=== PATIENT | female | born 1995 | race African-American/Black ===

== ENCOUNTER 2023-01-31 13:43 | Emergency (ER) | payer OTHER ==
[2023-01-31 14:37] LABS: #Basophils 0.1 10x3/uL (0.0-0.2); #Eosinphils 0.5 10x3/uL (0.0-0.5); #Neutrophils 5.5 10x3/uL (1.5-8.4); %Basophils 0.4 % (0.0-2.0); %Lymphocytes 40.6 % (18.0-47.0); %Monocytes 8.4 % (0.0-10.0); %Neutrophils 46.3 % (40.0-75.0); Hemoglobin 9.6 g/dL (12.0-15.5); Mean Corpuscular HGB CONC 29.6 g/dL (32.0-36.0); Mean Corpuscular Hemoglobin 20.8 pg (27.0-33.0); Mean Corpuscular Volume 70.1 fl (81.6-98.3); Mean Platelet Volume 10.1 fl (7.4-10.4); Platelet Count 364 10x3/uL (150-450); RBC Distribution Width 19.9 % (11.5-14.5); Red Blood Cell (RBC) Count 4.62 10x6/uL (3.90-5.03)
[2023-01-31 14:56] LABS: ALT (SGPT) 91 U/L (8-55); AST (SGOT) 57 U/L (5-34); Alkaline Phosphatase 62 U/L (40-110); Anion Gap 13 mmol/L (10-20); BUN (Urea Nitrogen) 10 mg/dL (7.0-18.7); Bilirubin, Total 0.2 mg/dL (0.2-1.2); Calc. Creatinine Clearance 0 mL/min (70-130); Calcium 9.1 mg/dL (7.8-10.44); Carbon Dioxide 19 mmol/L (22-29); Chloride 108 mmol/L (98-107); Estimated GFR 87; Globulin 3.5 g/dL (2.4-3.5); Glucose 100 mg/dL (70-105); Potassium 3.5 mmol/L (3.5-5.1); Protein, Total 7.5 g/dL (6.0-8.3); Sodium 136 mmol/L (136-145)
[2023-01-31 15:02] LABS: BHCG - Serum POSITIVE (NEGATIVE)
[2023-01-31 15:04] LABS: Pregs Control Background? CLEAR/WHITE (CLR/WHITE); Pregs Control Bar Appear? YES (CONTROL BAR)
[2023-01-31 15:09] LABS: Bilirubin Neg (Negative); Blood, Urine 25 (Negative); Clarity Clear (Clear); Glucose, Urine (Dipstick) Normal (Negative); Ketone, Urine Negative (Negative); Leukocyte Negative (Negative); Nitrite Negative (Negative); Protein, Urine (Dipstick) Negative (Neg-Trace); Specific Gravity, Urine 1.025 (1.005-1.030); Urobilinogen Normal mg/dL (Less than 2)
[2023-01-31 15:11] LABS: Pregnancy Test - Urine (BHCG) POSITIVE (Negative); Specific Gravity 1.025 (1.002-1.036)
[2023-01-31 15:12] LABS: Elliptocytes SLIGHT = 2-5 cells (100X) (0-1/hpf); Hypochromia SLIGHT = 6-15 cells (100X) (0-5/hpf)
[2023-01-31 15:12] LABS: Pregu Control Background? CLEAR/WHITE (CLR/WHITE); Pregu Control Bar Appear? YES (CONTROL BAR)
[2023-01-31] MEDS ORDERED: Ondansetron ODT 4 MG TAB ONE (15:19)
[2023-01-31] MEDS ORDERED: Acetaminophen 500 MG TAB ONE (15:19)
[2023-01-31 15:42] LABS: CAUTI Indications for Culture Pelvic or flank pain; WBC/HPF 0-3 HPF (0-3)
[2023-01-31 15:43] LABS: Bacteria/HPF Rare-Few HPF (None Seen)
[2023-01-31 15:44] LABS: Urine Culture Reflex No No
== END 2023-01-31 15:30 | disposition home or self-care (01) ==
LOC: CSHERS 13:43
DX: O21.9 Vomiting of pregnancy, unspecified (principal); Z3A.01 Less than 8 weeks gestation of pregnancy
CPT/HCPCS: 36415; 80053; 81001; 81025; 84703; 85025; 99284; Q0162

== ENCOUNTER 2023-05-19 09:55 | Outpatient (CLI) | payer OTHER | END 2023-05-19 09:56 | disposition home or self-care (01) | LOC: CSHULT 09:55 | PROVIDERS: ATTEND Family Medicine | DX: O09.892 Supervision of other high risk pregnancies, second trimester (principal); Z3A.19 19 weeks gestation of pregnancy | CPT/HCPCS: 76805 ==

== ENCOUNTER 2023-08-18 10:48 | Day surgery (SDC) | payer OTHER | END 2023-08-18 13:55 | disposition home or self-care (01) | LOC: CSHLD/OP 10:48 | PROVIDERS: ATTEND Family Medicine | DX: Z36.89 Encounter for other specified antenatal screening (principal); O24.419 Gestational diabetes mellitus in pregnancy, unspecified control; O41.8X30 Other specified disorders of amniotic fluid and membranes, third trimester, not applicable or unspecified; O36.8930 Maternal care for other specified fetal problems, third trimester, not applicable or unspecified; O00.01 Abdominal pregnancy with intrauterine pregnancy; Z3A.32 32 weeks gestation of pregnancy | CPT/HCPCS: 76815; 76819 ==

== ENCOUNTER 2023-08-18 19:20 | Inpatient (IN) | payer BC, OTHER ==
[2023-08-18 20:05] VITALS: BMI 44.4
[2023-08-18] MEDS ORDERED: Promethazine HCl 25 MG/ML VIAL IM PRN (20:48)
[2023-08-18] MEDS ORDERED: Ondansetron PF 4 MG/2 ML Vial IVP PRN (20:48)
[2023-08-18] MEDS: Lactated Ringer's 1,000 ML IV SCH ×2 (20:50→21:52)
[2023-08-18] MEDS ORDERED: Oxytocin 30 units/NS 500 ML 500 ML IV SCH (21:00)
[2023-08-18 21:09] LABS: Hematocrit 32.8 % (34.9-44.5); Hemoglobin 10.7 g/dL (12.0-15.5); Mean Corpuscular HGB CONC 32.6 g/dL (32.0-36.0); Mean Corpuscular Hemoglobin 25.2 pg (27.0-33.0); Mean Corpuscular Volume 77.4 fl (81.6-98.3); Mean Platelet Volume 11.1 fl (7.4-10.4); Platelet Count 292 10x3/uL (150-450); Red Blood Cell (RBC) Count 4.24 10x6/uL (3.90-5.03); White Blood Cell (WBC) Count 12.4 10x3/uL (3.5-10.5)
[2023-08-18] MEDS: hydrALAZINE 20 MG/ML VIAL SLOW IVP PRN ×2 (21:13→21:45)
[2023-08-18 21:25] LABS: ALT (SGPT) 24 U/L (8-55); AST (SGOT) 28 U/L (5-34); Albumin 3.3 g/dL (3.5-5.0); Alkaline Phosphatase 84 U/L (40-110); Anion Gap 14 mmol/L (10-20); BUN (Urea Nitrogen) 10 mg/dL (7.0-18.7); Bilirubin, Total 0.2 mg/dL (0.2-1.2); Calc. Creatinine Clearance 215 mL/min (70-130); Calcium 8.8 mg/dL (7.8-10.44); Carbon Dioxide 19 mmol/L (22-29); Chloride 108 mmol/L (98-107); Estimated GFR 107; Globulin 3.3 g/dL (2.4-3.5); Glucose 125 mg/dL (70-105); Potassium 4.2 mmol/L (3.5-5.1); Protein, Total 6.6 g/dL (6.0-8.3); Sodium 137 mmol/L (136-145)
[2023-08-18] MEDS: Betamet Acet/Betamet Na Ph 30 MG/5 ML VIAL IM SCH (21:29)
[2023-08-18] MEDS ORDERED: Lorazepam 2 MG/ML VIAL SLOW IVP PRN (21:39)
[2023-08-18] MEDS ORDERED: hydrALAZINE 20 MG/ML VIAL SLOW IVP PRN ×2 (21:39)
[2023-08-18] MEDS ORDERED: Labetalol HCl 100 MG/20 ML VIAL SLOW IVP PRN ×2 (21:39)
[2023-08-18] MEDS ORDERED: Calcium Gluc 4.6 MEQ/10 ML (100 MG/ML) SLOW IVP PRN (21:39)
[2023-08-18] MEDS ORDERED: Magnesium Sulfate 20 gm/500 ml 20 GM/500 ML BAG ONE (21:40)
[2023-08-18] MEDS: Labetalol HCl 100 MG TAB PO SCH (21:46)
[2023-08-18] MEDS: Magnesium Sulfate 20 gm/500 ml 20 GM/500 ML BAG IVPB SCH (21:47)
[2023-08-18 22:24] LABS: HBSAg Index 0.17 S/CO (0-0.99); Hep B Surf Ag - L&D Non-Reactive S/CO (NonReactive)
[2023-08-18 22:38] LABS: Amphetamine Not Detected (NotDetected); Barbiturates Screen Not Detected (NotDetected); Benzodiazepine Screen Not Detected (NotDetected); Cocaine Metabolite Screen Not Detected (NotDetected); Methadone Not Detected (NotDetected); Methamphetamine Not Detected (NotDetected); Opiate Screen Not Detected (NotDetected); Oxycodone Screen Not Detected (NotDetected); Phencyclidine (PCP) Not Detected (NotDetected); THC/Cannabinoid Screen Not Detected (NotDetected); Tricyclic Screen Not Detected (NotDetected)
[2023-08-18 22:58] LABS: Syphilis Antibody Nonreactive (Nonreactive); Syphilis Antibody Index 0.04 S/CO (<1.00 Non-Reactive)
[2023-08-19] MEDS: Lactated Ringer's 1,000 ML IV SCH ×4 (01:08→21:39)
[2023-08-19] MEDS: Acetaminophen 500 MG TAB PO PRN ×4 (04:57→22:25)
[2023-08-19] MEDS: Labetalol HCl 100 MG TAB PO SCH ×3 (06:05→21:39)
[2023-08-19 14:12] LABS: Hemoglobin A1c 6.6 % (4.0-6.0)
[2023-08-19] MEDS: Magnesium Sulfate 20 gm/500 ml 20 GM/500 ML BAG IVPB SCH (16:26)
[2023-08-19] MEDS: Betamet Acet/Betamet Na Ph 30 MG/5 ML VIAL IM SCH (21:38)
[2023-08-20] MEDS: Magnesium Sulfate 20 gm/500 ml 20 GM/500 ML BAG IVPB SCH ×2 (00:07→11:16)
[2023-08-20] MEDS ORDERED: Ondansetron PF 4 MG/2 ML Vial ONE (10:41)
[2023-08-20] MEDS ORDERED: PHENYLEPHRINE-NS 100 MCG/ML 10 ML SYRINGE ONE (10:41)
[2023-08-20] MEDS ORDERED: Dexamethasone 4 mg/ml Vial ONE (10:41)
[2023-08-20] MEDS ORDERED: Glycopyrrolate 0.2 MG/ML 5 ML SYRINGE ONE (10:41)
[2023-08-20] MEDS ORDERED: Phenylephrine 40 MG/NS 250 ML 250 ML ONE (10:41)
[2023-08-20] MEDS ORDERED: Ketorolac Tromethamine 30 MG (1 mL) VIAL ONE (10:41)
[2023-08-20] MEDS ORDERED: ePHEDrine Sulfate 50 MG/10 ML VIAL ONE (10:41)
[2023-08-20] MEDS ORDERED: Oxytocin 10 UNITS/ML VIAL ONE (10:41)
[2023-08-20] MEDS ORDERED: Morphine PF 10 MG/10 ML VIAL ONE (10:42)
[2023-08-20] MEDS: Acetaminophen 500 MG TAB PO PRN (11:15)
[2023-08-20] MEDS ORDERED: Erythromycin Base 0.5% Oint 1 GM TUBE ONE (12:53)
[2023-08-20] MEDS ORDERED: Phytonadione Neonatal 1 MG/0.5 ML AMP ONE (12:53)
[2023-08-20] MEDS ORDERED: CEFAZOLIN 2 GM VIAL ONE (12:54)
[2023-08-20] MEDS ORDERED: Moisturizing Cream (Eucerin) 113 GM JAR TOP PRN (14:52)
[2023-08-20] MEDS ORDERED: Ketorolac Tromethamine 30 MG (1 mL) VIAL IVP PRN (14:52)
[2023-08-20] MEDS ORDERED: diphenhydrAMINE 50 MG/ML VIAL IVP PRN (14:52)
[2023-08-20] MEDS ORDERED: Naloxone HCl 0.4 mg/ml Vial IVP PRN ×2 (14:52)
[2023-08-20] MEDS ORDERED: Ondansetron PF 4 MG/2 ML Vial IVP PRN ×3 (14:52→15:48)
[2023-08-20] MEDS ORDERED: Naloxone HCl 0.4 mg/ml Vial IV PRN (14:52)
[2023-08-20] MEDS ORDERED: Meperidine HCl/PF 25 MG (1 mL) VIAL SLOW IVP PRN (14:52)
[2023-08-20] MEDS ORDERED: Promethazine HCl 25 MG/ML VIAL IM PRN ×2 (14:52→15:48)
[2023-08-20] MEDS ORDERED: fentaNYL 50 mcg/mL 1 mL Vial SLOW IVP PRN (14:52)
[2023-08-20] MEDS ORDERED: Promethazine HCl 25 MG SUPP PR PRN (14:52)
[2023-08-20] MEDS ORDERED: Ketorolac Tromethamine 30 MG (1 mL) VIAL IVP SCH (15:00)
[2023-08-20] MEDS ORDERED: Communication Order-Pharmacy FS SCH (15:00)
[2023-08-20] MEDS ORDERED: hydrALAZINE 20 MG/ML VIAL SLOW IVP PRN (15:48)
[2023-08-20] MEDS ORDERED: Bisacodyl 10 MG SUPP PR PRN (15:48)
[2023-08-20] MEDS ORDERED: Boostrix 0.5 ML (Tdap) VIAL (>/=7 yrs of age) IM ONE (15:48)
[2023-08-20] MEDS ORDERED: Simethicone Chewable 80 MG TAB PO PRN (15:48)
[2023-08-20] MEDS ORDERED: diphenhydrAMINE 25 MG CAP PO PRN (15:48)
[2023-08-20] MEDS ORDERED: Lanolin Ointment 7 GM TUBE TOP PRN (15:48)
[2023-08-20] MEDS: Labetalol HCl 100 MG TAB PO SCH ×2 (17:00→19:06)
[2023-08-20] MEDS: Lactated Ringer's 1,000 ML IV SCH (19:08)
[2023-08-20] MEDS: Ketorolac Tromethamine 30 MG (1 mL) VIAL IVP SCH (19:25)
[2023-08-20 20:09] LABS: HIV (1/2) Antibody/Antigen Non-Reactive (NonReactive); HIV 1/2 INDEX 0.18 S/CO (<1.00)
[2023-08-20] MEDS: Docusate 100 MG CAP PO SCH (21:21)
[2023-08-20] MEDS: Ferrous Sulfate 325 MG TAB PO SCH (21:21)
[2023-08-21] MEDS: Labetalol HCl 100 MG TAB PO SCH ×4 (00:21→17:06)
[2023-08-21] MEDS: Ketorolac Tromethamine 30 MG (1 mL) VIAL IVP SCH ×3 (01:20→14:32)
[2023-08-21] MEDS ORDERED: Meperidine HCl/PF 25 MG (1 mL) VIAL IM PRN (03:00)
[2023-08-21] MEDS ORDERED: HYDROcodone/Acetaminophen 5/325 mg Tablet PO PRN (03:00)
[2023-08-21 04:34] LABS: Hemoglobin 9.6 g/dL (12.0-15.5); Mean Corpuscular Hemoglobin 24.9 pg (27.0-33.0); Mean Corpuscular Volume 77.7 fl (81.6-98.3); Mean Platelet Volume 10.8 fl (7.4-10.4); Platelet Count 300 10x3/uL (150-450); RBC Distribution Width 16.4 % (11.5-14.5); Red Blood Cell (RBC) Count 3.86 10x6/uL (3.90-5.03)
[2023-08-21 04:46] LABS: Critical Call Chemistry NUR.LHA @0443; Magnesium 5.7 mg/dL (1.6-2.6)
[2023-08-21] MEDS: Magnesium Sulfate 20 gm/500 ml 20 GM/500 ML BAG IVPB SCH (07:52)
[2023-08-21] MEDS: Prenatal Vitamin 1 TAB PO SCH (09:35)
[2023-08-21] MEDS: Ferrous Sulfate 325 MG TAB PO SCH ×2 (09:35→21:24)
[2023-08-21] MEDS: HYDROcodone/Acetaminophen 5/325 mg Tablet PO PRN ×3 (14:34→22:50)
[2023-08-21] MEDS: Docusate 100 MG CAP PO SCH ×2 (16:43→21:24)
[2023-08-21] MEDS: Ibuprofen 800 MG TAB PO SCH (21:24)
[2023-08-22] MEDS: Labetalol HCl 100 MG TAB PO SCH ×3 (00:10→17:57)
[2023-08-22] MEDS: HYDROcodone/Acetaminophen 5/325 mg Tablet PO PRN ×5 (05:45→23:29)
[2023-08-22] MEDS: Ibuprofen 800 MG TAB PO SCH ×3 (06:15→21:42)
[2023-08-22] MEDS: Prenatal Vitamin 1 TAB PO SCH (08:13)
[2023-08-22] MEDS: Ferrous Sulfate 325 MG TAB PO SCH ×2 (08:13→21:42)
[2023-08-22] MEDS: Docusate 100 MG CAP PO SCH ×2 (08:13→21:42)
[2023-08-23] MEDS: Labetalol HCl 100 MG TAB PO SCH ×3 (03:11→16:21)
[2023-08-23 03:20] VITALS: TEMP 98.2
[2023-08-23] MEDS: HYDROcodone/Acetaminophen 5/325 mg Tablet PO PRN ×3 (06:26→18:06)
[2023-08-23] MEDS: Ibuprofen 800 MG TAB PO SCH ×2 (06:27→13:53)
[2023-08-23] MEDS: Docusate 100 MG CAP PO SCH (08:01)
[2023-08-23] MEDS: Prenatal Vitamin 1 TAB PO SCH (08:01)
[2023-08-23] MEDS: Ferrous Sulfate 325 MG TAB PO SCH (08:01)
[2023-08-23 16:27] VITALS: BP 138/68
== END 2023-08-23 18:30 | disposition home or self-care (01) | DRG 788 ==
LOC: OBSVTOIN 19:20 → CSHLD 19:20 → CSHPP 08-21 16:10
PROVIDERS: ADMIT Family Medicine; ATTEND Family Medicine
PROC: 10D00Z1 Extraction of Products of Conception, Low, Open Approach (ICD-10-PCS; principal; 2023-08-20)
PROC: 3E033XZ Introduction of Vasopressor into Peripheral Vein, Percutaneous Approach (ICD-10-PCS; 2023-08-20)
DX: O24.420 Gestational diabetes mellitus in childbirth, diet controlled (principal); E66.01 Morbid (severe) obesity due to excess calories; O99.214 Obesity complicating childbirth; Z3A.33 33 weeks gestation of pregnancy; O14.14 Severe pre-eclampsia complicating childbirth; Z37.0 Single live birth; O76 Abnormality in fetal heart rate and rhythm complicating labor and delivery; O41.8X30 Other specified disorders of amniotic fluid and membranes, third trimester, not applicable or unspecified; O36.8930 Maternal care for other specified fetal problems, third trimester, not applicable or unspecified
CPT/HCPCS: 36415; 36416; 51702; 59025; 76815; 76819; 80053; 80306; 82570; 83036; 83735; 84156; 85027; 86762; 86780; 86850; 86900; 86901; 87340; 87389; 88307; 99282; 99285; J0360; J0702; J1100; J1200; J1885; J2175; J2274; J2405; J2590; J3475; J7120